=== PATIENT | male | born 1965 | race Caucasian/White ===

== ENCOUNTER 2024-03-10 11:56 | Emergency (ER) | payer MEDICAID, OTHER ==
[~2024-03-10] VITALS: Ht 170.2 cm; Wt 87.0 kg
[2024-03-10 12:27] VITALS: BP 117/78; PULSE 62; RESP 18; TEMP 98.7; O2SAT 99
[2024-03-10] MEDS ORDERED: LIDOCAINE HCL/PF 1% 10 MG/ML 5ML VIAL INFIL ONE (12:45)
[2024-03-10] MEDS: TETANUS, DIPHTHERIA, PERTUSSIS VAC/PF 0.5ML (>10YR OLD) IM ONE (13:17)
[2024-03-10] MEDS: BACITRACIN ZINC OINT UDPKT TOP ONE (13:18)
== END 2024-03-10 13:34 | disposition home or self-care (01) ==
LOC: ER 12:38
DX: S41.112A Laceration without foreign body of left upper arm, initial encounter (principal); W26.8XXA Contact with other sharp object(s), not elsewhere classified, initial encounter; Y93.89 Activity, other specified; Y92.89 Other specified places as the place of occurrence of the external cause; Y99.8 Other external cause status
CPT/HCPCS: 12002; 99282; J3490; Z7610 ×2

== ENCOUNTER 2024-03-15 11:34 | Emergency (ER) | payer MEDICAID ==
[~2024-03-15] VITALS: Ht 167.6 cm; Wt 87.0 kg
[2024-03-15 11:43] VITALS: O2SAT 98
[2024-03-15 11:46] VITALS: BP 123/69; PULSE 69; RESP 16; TEMP 98.7; O2SAT 100
[2024-03-15] MEDS ORDERED: BO1 TP (12:43)
== END 2024-03-15 12:51 | disposition home or self-care (01) ==
LOC: ER 11:34
DX: S41.111D Laceration without foreign body of right upper arm, subsequent encounter (principal); Z48.00 Encounter for change or removal of nonsurgical wound dressing; X58.XXXD Exposure to other specified factors, subsequent encounter
CPT/HCPCS: 99282